=== PATIENT | female | born 1995 | race Caucasian/White ===

== ENCOUNTER 2019-04-28 08:44 | Inpatient (IN) | payer OTHER ==
[~2019-04-28] VITALS: Ht 167.6 cm; Wt 104.3 kg
[2019-04-28] MEDS ORDERED: OXYTOCIN 10 UNITS/ML VIAL IM SCH (09:20)
[2019-04-28] MEDS ORDERED: NALBUPHINE 10 MG/ML AMP IVP PRN (09:20)
[2019-04-28] MEDS ORDERED: PROMETHAZINE 25 MG/ML VIAL IVP PRN (09:20)
[2019-04-28] MEDS ORDERED: METHYLERGONOVINE 0.2 MG/ML AMP IM PRN (09:20)
[2019-04-28] MEDS ORDERED: CARBOPROST 250 MCG/ML AMP IM PRN (09:20)
[2019-04-28] MEDS ORDERED: PREN-380 PO (09:32)
[2019-04-28] MEDS ORDERED: FERR-252 PO (09:32)
[2019-04-28] MEDS ORDERED: INFLUENZA VACCINE QUAD 0.5 ML SYR IMVAC PRN (09:50)
[2019-04-28 09:58] LABS: APPEARANCE,URINE SL CLOUDY (CLEAR); BILIRUBIN,URINE NEGATIVE (NEGATIVE); BLOOD, URINE 2+ (NEGATIVE); COLOR,URINE YELLOW (YELLOW); LEUKOCYTE ESTERASE ,URINE TRACE (NEGATIVE); NITRITE, URINE NEGATIVE (NEGATIVE); UGLUCOSE NEGATIVE (NEGATIVE)
[2019-04-28 10:00] LABS: ANION GAP 17.4 (8-16); BASOPHILS % (AUTO) 0.2 % (0.0-2.0); CARBON DIOXIDE 22.3 mmol/L (21-32); CREATININE 0.6 mg/dL (0.6-1.3); EOSINOPHILS % (AUTO) 0.3 % (0.0-4.0); HEMOGLOBIN 13.2 g/dL (12.0-16.0); LYMPHOCYTES # (AUTO) 1.6 K/uL (2.5-16.5); MEAN CORPUSCULAR HEMOGLOBIN 30 pg (27-31); MEAN CORPUSCULAR HGB CONC 33 g/dL (33-37); MEAN CORPUSCULAR VOLUME 89.8 fL (80-94); MONOCYTES # (AUTO) 0.7 K/uL (0.8-1.0); MONOCYTES % (AUTO) 6.9 % (1.7-9.3); NEUTROPHILS # (AUTO) 7.9 K/uL (1.8-7.7); NEUTROPHILS % (AUTO) 76.6 % (42.2-75.2); PLATELET COUNT (AUTO) 184 K/uL (140-450); POTASSIUM 3.7 mmol/L (3.5-5.1); RED BLOOD CELL COUNT(AUTO) 4.45 MIL/uL (4.20-5.40); RED CELL DISTRIBUTION WIDTH 13.9 % (11.6-13.7); WHITE BLOOD COUNT (AUTO) 10.3 K/uL (4.8-10.8)
[2019-04-28 10:06] LABS: ALBUMIN 2.8 g/dL (3.4-5.0); TOTAL BILIRUBIN 0.3 mg/dL (0.0-1.0)
[2019-04-28 10:10] LABS: RBC,URINE 11-20 (MOD) /HPF (0-5)
[2019-04-28] MEDS ORDERED: MISOPROSTOL 25 MCG TAB VG SCH ×2 (10:15→10:25)
[2019-04-28] MEDS ORDERED: MISOPROSTOL 25 MCG TAB ONE (10:16)
[2019-04-28] MEDS ORDERED: OXYTOCIN 20 UNITS in LACTATED RINGERS 1,000 ML IV SCH (17:15)
[2019-04-28] MEDS ORDERED: OXYTOCIN 20 UNITS/LR PREMIX 1,000 ML IV ONE (17:42)
[2019-04-28] MEDS ORDERED: EPIDURAL KEYS MC ONE ×2 (18:25→18:27)
[2019-04-28] MEDS ORDERED: BUPIVACAINE 0.125%/NS PREMIX 250 ML ONE (18:41)
[2019-04-28] MEDS: LACTATED RINGERS 1,000 ML IV SCH ×3 (19:08→20:15)
[2019-04-28] MEDS ORDERED: BUPIVACAINE 0.125%/NS PREMIX 250 ML EPI SCH (19:30)
[2019-04-29] MEDS ORDERED: TERBUTALINE 1 MG/ML VIAL SUBQ ONE ×2 (02:35→02:39)
[2019-04-29] MEDS ORDERED: METHYLERGONOVINE 0.2 MG/ML AMP IM PRN (03:05)
[2019-04-29] MEDS ORDERED: oxyCODONE/APAP 5/325 MG 1 TAB TAB PO PRN (03:05)
[2019-04-29] MEDS ORDERED: MEASLES, MUMPS, AND RUBELLA 1 VIAL SQVAC PRN (03:05)
[2019-04-29] MEDS ORDERED: OXYTOCIN 10 UNITS in LACTATED RINGERS 1,000 ML IV SCH (03:05)
[2019-04-29] MEDS ORDERED: ceFAZolin 1,000 MG VIAL ONE (03:09)
[2019-04-29] MEDS ORDERED: SODIUM BICARBONATE 8.4% PFS 50 MEQ/50 ML SYR IVP ONE (03:38)
[2019-04-29] MEDS ORDERED: MORPHINE PRES FREE 10 MG/10 ML AMP IV ONE (03:38)
[2019-04-29] MEDS ORDERED: LIDOCAINE/EPI MPF 2%1:200000 10 ML VIAL INJ ONE (03:39)
[2019-04-29] MEDS ORDERED: diphenhydrAMINE 50 MG/ML VIAL IVP PRN (04:30)
[2019-04-29] MEDS ORDERED: ONDANSETRON 4 MG/2 ML VIAL IVP PRN ×2 (04:30)
[2019-04-29] MEDS ORDERED: NALOXONE 0.4 MG/ML VIAL IVP PRN ×3 (04:30)
[2019-04-29] MEDS ORDERED: NALBUPHINE 10 MG/ML AMP IVP PRN (04:30)
[2019-04-29] MEDS ORDERED: KETOROLAC 30 MG/ML VIAL IVP PRN (04:30)
[2019-04-29] MEDS ORDERED: KETOROLAC 30 MG/ML VIAL IM/IVP SCH (06:00)
[2019-04-29] MEDS ORDERED: BISACODYL 10 MG SUPP RC SCH (09:00)
[2019-04-29] MEDS ORDERED: OXYTOCIN 20 UNITS in LACTATED RINGERS 1,000 ML IV SCH (10:50)
[2019-04-29] MEDS ORDERED: IBUPROFEN 600 MG TAB PO SCH (12:00)
[2019-04-29] MEDS ORDERED: LACTATED RINGERS 1,000 ML IV SCH (15:45)
[2019-04-29 16:19] LABS: BASOPHILS % (AUTO) 0.1 % (0.0-2.0); EOSINOPHILS % (AUTO) 0.1 % (0.0-4.0); HEMATOCRIT 33.6 % (36-48); LYMPHOCYTES # (AUTO) 1.3 K/uL (2.5-16.5); LYMPHOCYTES % (AUTO) 8.5 % (20.5-51.1); MEAN CORPUSCULAR HEMOGLOBIN 29 pg (27-31); MEAN CORPUSCULAR HGB CONC 33 g/dL (33-37); MEAN CORPUSCULAR VOLUME 89.5 fL (80-94); MONOCYTES # (AUTO) 1.1 K/uL (0.8-1.0); MONOCYTES % (AUTO) 7.4 % (1.7-9.3); NEUTROPHILS % (AUTO) 83.9 % (42.2-75.2); PLATELET COUNT (AUTO) 146 K/uL (140-450); RED BLOOD CELL COUNT(AUTO) 3.75 MIL/uL (4.20-5.40); RED CELL DISTRIBUTION WIDTH 13.7 % (11.6-13.7); WHITE BLOOD COUNT (AUTO) 15.4 K/uL (4.8-10.8)
[2019-04-29 16:23] LABS: ANION GAP 11.8 (8-16); CREATININE 0.6 mg/dL (0.6-1.3); POTASSIUM 3.8 mmol/L (3.5-5.1)
[2019-04-29] MEDS ORDERED: PROMETHAZINE 25 MG/ML VIAL IVP PRN (18:45)
[2019-04-29] MEDS ORDERED: CARBOPROST 250 MCG/ML AMP IM PRN (18:45)
[2019-04-30] MEDS ORDERED: OXYTOCIN 20 UNITS/LR PREMIX 1,000 ML IV ONE (00:29)
[2019-04-30] MEDS: IBUPROFEN 600 MG TAB PO SCH ×4 (03:01→21:07)
[2019-04-30] MEDS ORDERED: oxyCODONE/APAP 5/325 MG 1 TAB TAB PO PRN (06:00)
[2019-04-30 06:49] LABS: BASOPHILS % (AUTO) 0.1 % (0.0-2.0); EOSINOPHILS # (AUTO) 0.1 K/uL (0-0.4); EOSINOPHILS % (AUTO) 0.9 % (0.0-4.0); HEMOGLOBIN 10.5 g/dL (12.0-16.0); LYMPHOCYTES # (AUTO) 1.8 K/uL (2.5-16.5); LYMPHOCYTES % (AUTO) 12.7 % (20.5-51.1); MEAN CORPUSCULAR HEMOGLOBIN 30 pg (27-31); MEAN CORPUSCULAR HGB CONC 33 g/dL (33-37); MEAN CORPUSCULAR VOLUME 89.7 fL (80-94); MONOCYTES # (AUTO) 1.2 K/uL (0.8-1.0); MONOCYTES % (AUTO) 8.4 % (1.7-9.3); NEUTROPHILS # (AUTO) 11.2 K/uL (1.8-7.7); NEUTROPHILS % (AUTO) 77.9 % (42.2-75.2); PLATELET COUNT (AUTO) 139 K/uL (140-450); RED BLOOD CELL COUNT(AUTO) 3.57 MIL/uL (4.20-5.40); RED CELL DISTRIBUTION WIDTH 14.1 % (11.6-13.7); WHITE BLOOD COUNT (AUTO) 14.4 K/uL (4.8-10.8)
[2019-04-30] MEDS: oxyCODONE/APAP 5/325 MG 1 TAB TAB PO SCH ×3 (06:53→18:12)
--- NOTE | 2019-04-30 08:49 | NUR ---
PATIENT HAS BEEN SCREENED AND CATEGORIZED LOW NUTRITION RISK. PATIENT WILL BE SEEN WITHIN 7 DAYS OF ADMISSION. 05/05/[address]
[2019-05-01] MEDS: oxyCODONE/APAP 5/325 MG 1 TAB TAB PO SCH ×2 (00:07→06:12)
[2019-05-01] MEDS: IBUPROFEN 600 MG TAB PO SCH (03:11)
[2019-05-01] MEDS ORDERED: oxyCODONE/APAP 5/325 MG 1 TAB TAB PO PRN (07:00)
[2019-05-01] MEDS: IBUPROFEN 600 MG TAB PO PRN ×2 (14:30→22:44)
[2019-05-02] MEDS ORDERED: CAMERA MC ONE (07:19)
[2019-05-02] MEDS: IBUPROFEN 600 MG TAB PO PRN (11:53)
== END 2019-05-02 14:40 | disposition home or self-care (01) | DRG 540 ==
LOC: MLD 08:44 → MFCC 04-29 05:45
PROVIDERS: ADMIT Obstetrics & Gynecology; ATTEND Obstetrics & Gynecology
PROC: 3E0234Z Introduction of Serum, Toxoid and Vaccine into Muscle, Percutaneous Approach (ICD-10-PCS; 2019-04-29)
PROC: 10D00Z1 Extraction of Products of Conception, Low, Open Approach (ICD-10-PCS; principal; 2019-04-29 03:00)
DX: O76 Abnormality in fetal heart rate and rhythm complicating labor and delivery (principal); O62.1 Secondary uterine inertia; O63.1 Prolonged second stage (of labor); O69.1XX0 Labor and delivery complicated by cord around neck, with compression, not applicable or unspecified; Z23 Encounter for immunization; Z3A.39 39 weeks gestation of pregnancy; Z37.0 Single live birth
CPT/HCPCS: 36415; 51702; 59200; 76815; 80048; 80053; 81001; 85025; 86592; 86886; 86900; 86901; 87086; J0690; J0696; J1885; J2001; J2270; J2405; J2590; J3105; J3490; J7060; J7120; Q0092

== ENCOUNTER 2019-10-11 21:52 | Emergency (ER) | payer OTHER ==
[~2019-10-11] VITALS: Ht 167.6 cm; Wt 102.1 kg
[~2019-10-11 21:52] MED LIST: FERR-252 PO; PREN-380 PO
[2019-10-11 21:58] VITALS: BP 131/69
--- NOTE | 2019-10-11 22:19 | NUR ---
24 Y/O FEMALE C/O RIGHT UPPER BACK PAIN SECONDARY TO BUG BITE THAT OCCURED AT 430PM. PT STATES SHE THINKS A SPIDER BIT HER. PT DID NOT TAKE ANY OTC MEDICATION. PT TALKING IN FULL SENTENCES, AIRWAY PATENT, NO RESPIRATORY ISSUES; DENIES N/V/D; SKIN IS PINK/WARM/DRY; AAOX4 WITH EVEN AND STEADY GAIT;PT DENIES ANY FEVER, CP, SOB, OR COUGH AT THIS TIME; PATIENT STATES PAIN OF 5/10 AT THIS TIME; VSS; PATIENT POSITIONED FOR COMFORT; HOB ELEVATED; BEDRAILS UP X2; BED DOWN AND LOCKED. PMH: PT DENIES NKA
--- NOTE | 2019-10-11 22:20 | NUR ---
AT BEDSIDE EXAMINING PT
[2019-10-11] MEDS ORDERED: IBUPROFEN 800 MG TAB PO ONE (22:25)
[2019-10-11 22:46] VITALS: BP 131/69
== END 2019-10-11 22:46 | disposition home or self-care (01) ==
LOC: MED 21:52
DX: S40.861A Insect bite (nonvenomous) of right upper arm, initial encounter (principal); Z79.899 Other long term (current) drug therapy; W57.XXXA Bitten or stung by nonvenomous insect and other nonvenomous arthropods, initial encounter; Y93.89 Activity, other specified; Y92.89 Other specified places as the place of occurrence of the external cause; Y99.8 Other external cause status
CPT/HCPCS: 99282; 99283